=== PATIENT | female | born 1995 | race Caucasian/White ===

== ENCOUNTER 2017-02-13 14:12 | Emergency (ER) | payer OTHER, SELFPAY ==
[2017-02-13] MEDS ORDERED: traMADol HCl 50 MG TAB ONE (14:57)
[2017-02-13] MEDS ORDERED: Penicillin V Potassium 250 MG TAB ONE (14:57)
== END 2017-02-13 14:57 | disposition home or self-care (01) ==
LOC: NAV ERS 14:12
DX: K04.7 Periapical abscess without sinus (principal); F17.210 Nicotine dependence, cigarettes, uncomplicated
CPT/HCPCS: 99282

== ENCOUNTER 2017-06-25 17:49 | Emergency (ER) | payer SELFPAY ==
[2017-06-25] MEDS ORDERED: Ibuprofen 800 MG TAB ONE (18:28)
--- NOTE | 2017-06-25 18:35 | RAD ---
LEFT ANKLE THREE VIEWS: History: Tripped and fell down some stairs, heard a pop when falling. Comparison: None. FINDINGS: The medial clear space of the ankle mortise is at the upper limits of normal in size. No significant lateral talar shift. Marked lateral malleolar soft tissue edema. No acute fracture. Moderate degenerative disease in the midfoot including talonavicular osteophyte formation. IMPRESSION: Findings suggestive of ankle sprain without acute fracture or malalignment. POS: [facility]OLO
== END 2017-06-25 18:35 | disposition home or self-care (01) ==
LOC: NAV ERS 17:49
DX: S93.402A Sprain of unspecified ligament of left ankle, initial encounter (principal); F17.210 Nicotine dependence, cigarettes, uncomplicated; W18.40XA Slipping, tripping and stumbling without falling, unspecified, initial encounter

== ENCOUNTER 2020-10-20 11:00 | Emergency (ER) | payer MEDICAID, OTHER ==
[2020-10-20] MEDS ORDERED: Ketorolac Tromethamine 60 MG/2 ML VIAL ONE (11:36)
--- NOTE | 2020-10-20 12:03 | RAD ---
EXAM: XR Lumbar Spine 2 Or 3 View PROVIDED CLINICAL HISTORY: Low back pain. COMPARISON: None FINDINGS: T12 ribs appear hypoplastic. There are 5 nonrib-bearing lumbar-type vertebral bodies. The vertebral b andres heights and intervertebral disc spaces are within normal limits. No fracture or subluxation is seen involving the lumbar spine. Metallic densities overlie the pelvis likely related to overlying ar tifact. IMPRESSION: No fracture or subluxation involving the lumbar spine.
[2020-10-20] MEDS ORDERED: Orphenadrine Citrate 60 MG/2 ML VIAL ONE (12:19)
== END 2020-10-20 12:40 | disposition home or self-care (01) ==
LOC: NAV ERS 11:00
DX: M54.5 Low back pain (principal); F17.210 Nicotine dependence, cigarettes, uncomplicated
CPT/HCPCS: 72100; 96372; J1885; J2360

== ENCOUNTER 2021-12-13 18:29 | Emergency (ER) | payer MEDICAID, SELFPAY ==
[2021-12-13] MEDS ORDERED: Ibuprofen 200 MG TAB ONE (18:49)
[2021-12-13] MEDS ORDERED: Penicillin V Potassium 250 MG TAB ONE (19:29)
[2021-12-13] MEDS ORDERED: Ibuprofen 800 MG TAB ONE (19:30)
[2021-12-13] MEDS ORDERED: Acetaminophen 500 MG TAB ONE (19:31)
== END 2021-12-13 19:29 | disposition home or self-care (01) ==
LOC: NAV ERS 18:29
DX: J02.0 Streptococcal pharyngitis (principal); F17.210 Nicotine dependence, cigarettes, uncomplicated
CPT/HCPCS: 87081; 87430; 99284

== ENCOUNTER 2023-04-21 14:32 | Emergency (ER) | payer SELFPAY | END 2023-04-21 15:40 | disposition home or self-care (01) | LOC: NAV ERS 14:32 | DX: M79.671 Pain in right foot (principal); F41.9 Anxiety disorder, unspecified; F17.210 Nicotine dependence, cigarettes, uncomplicated ==